=== PATIENT | male | born 1995 | race Caucasian/White ===

== ENCOUNTER 2018-01-31 16:07 | Emergency (ER) | payer MEDICAID ==
[~2018-01-31] VITALS: Ht 180.3 cm; Wt 77.1 kg
[~2018-01-31 16:07] MED LIST: DOCU-144 PO; HYDR-1189 PO
[2018-01-31 16:14] VITALS: BP_SYST 135
[2018-01-31 16:40] VITALS: BP_SYST 100
== END 2018-01-31 16:40 | disposition home or self-care (01) ==
LOC: SED 16:07
DX: D17.1 Benign lipomatous neoplasm of skin and subcutaneous tissue of trunk (principal); R03.0 Elevated blood-pressure reading, without diagnosis of hypertension
CPT/HCPCS: 99282

== ENCOUNTER 2018-02-05 13:05 | Emergency (ER) | payer MEDICAID ==
[~2018-02-05] VITALS: Ht 180.3 cm; Wt 77.1 kg
[2018-02-05 13:26] VITALS: BP_SYST 127
[2018-02-05 14:51] VITALS: BP_SYST 120
== END 2018-02-05 14:51 | disposition home or self-care (01) ==
LOC: SED 13:05
DX: L02.92 Furuncle, unspecified (principal); Z90.89 Acquired absence of other organs
CPT/HCPCS: 99283

== ENCOUNTER 2018-02-07 16:25 | Emergency (ER) | payer MEDICAID ==
[~2018-02-07] VITALS: Ht 180.3 cm; Wt 31.8 kg
[2018-02-07 16:46] VITALS: BP_SYST 124
[2018-02-07] MEDS ORDERED: LIDOCAINE/EPI 2% 1:100000 20 ML VIAL INJ ONE (17:15)
[2018-02-07] MEDS ORDERED: IBUPROFEN 800 MG TABLET PO ONE (17:45)
[2018-02-07 17:55] VITALS: BP_SYST 114
== END 2018-02-07 17:55 | disposition home or self-care (01) ==
LOC: SED 16:25
DX: L02.211 Cutaneous abscess of abdominal wall (principal); R03.0 Elevated blood-pressure reading, without diagnosis of hypertension; Z90.89 Acquired absence of other organs
CPT/HCPCS: 99283

== ENCOUNTER 2018-02-09 10:29 | Emergency (ER) | payer MEDICAID ==
[~2018-02-09] VITALS: Ht 180.3 cm; Wt 77.1 kg
[2018-02-09 10:49] VITALS: BP_SYST 131
[2018-02-09 12:08] VITALS: BP_SYST 122
== END 2018-02-09 11:35 | disposition home or self-care (01) ==
LOC: SED 10:29
DX: S31.103A Unspecified open wound of abdominal wall, right lower quadrant without penetration into peritoneal cavity, initial encounter (principal); L02.211 Cutaneous abscess of abdominal wall; R03.0 Elevated blood-pressure reading, without diagnosis of hypertension; Z90.89 Acquired absence of other organs; Y83.8 Other surgical procedures as the cause of abnormal reaction of the patient, or of later complication, without mention of misadventure at the time of the procedure; Y82.8 Other medical devices associated with adverse incidents; Y93.89 Activity, other specified; Y92.89 Other specified places as the place of occurrence of the external cause; Y99.8 Other external cause status
CPT/HCPCS: 99283

== ENCOUNTER 2018-02-18 10:29 | Emergency (ER) | payer MEDICAID ==
[~2018-02-18] VITALS: Ht 180.3 cm; Wt 77.1 kg
[2018-02-18 11:06] VITALS: BP_SYST 122
[2018-02-18 11:11] VITALS: BP_SYST 122
== END 2018-02-18 11:11 | disposition home or self-care (01) ==
LOC: SED 10:29
DX: Z48.01 Encounter for change or removal of surgical wound dressing (principal); Z88.5 Allergy status to narcotic agent
CPT/HCPCS: 99281